=== PATIENT | female | born 1960 | race Caucasian/White ===

== ENCOUNTER 2016-11-11 11:32 | Observation (INO) | payer BC ==
[~2016-11-11] VITALS: Ht 167.6 cm; Wt 92.5 kg
--- NOTE | ~2016-11-11 | HP ---
PATIENT'S NAME: PAULINA ODOM [facility] AGE: 56 Y [address] ROOM: [address] [place], [place] [address] [facility] ADMIT DATE: 11/11/2016 History & Physical DISCHARGE DATE: FAMILY PHYSICIAN: ISELA DOS SANTOS MD ATTENDING PHYSICIAN: ISELA DOS SANTOS DATE OF SERVICE: CHIEF COMPLAINT: Chest pain and left arm pain. HISTORY OF PRESENT ILLNESS: The patient is a 56-year-old white female who presented to the emergency room early in the afternoon of the day of admission. She came in with her because she was having some left arm pain and left chest pain that would not go away. Here, she was evaluated by Dr. Maria M Cornejo, ER physician. In the hospital, her EKG, on my review, shows no acute sign of ischemia and normal sinus rhythm. Her chest x-ray shows normal-sized heart. Her right hemidiaphragm is a little bit elevated, but lungs are clear. Her D- dimer is negative. Her cardiac enzymes are normal. Her CBC and chemistry panel are normal with the exception of her sugar being 443. Her chest pain got better, was 5/10 pre-nitroglycerin sublingual, and almost went away with nitroglycerin. When I see her, her chest pain had gone away on the nitroglycerin drip, but she felt some mild heaviness when I saw her in the emergency room at 1:20 in the afternoon. The patient's father had a heart attack at age 48. The patient is a nonsmoker. She does have hypertension. Lipids have been normal in the past. The patient has mild exogenous obesity. She is a nonsmoker and has had no previous heart attack. My plan at this point is to admit her to the hospital, keep her on nitroglycerin drip, put her on telemetry, check serial cardiac enzymes and EKG, and ask Dr. Alexander, service planner, from [facility] to see her later today. If she is stable, I suspect she gets a stress test tomorrow, and if she should fail that, I suspect a heart catheterization, and I have discussed that with the patient and her today. The patient does have a history of GERD, treated with a PPI. She has had no recent cough or cold. No rash on her chest. No pain in her breasts per se. No cough or cold. No chest trauma. PAST MEDICAL HISTORY: MEDICATIONS: 1. Diovan 320/25 one daily. PATIENT'S NAME: PAULINA ODOM [facility] AGE: 56 Y [address] ROOM: [place] [address] LOCATION: [facility]U ADMIT DATE: 11/11/2016 History & Physical DISCHARGE DATE: FAMILY PHYSICIAN: ISELA DOS SANTOS MD ATTENDING PHYSICIAN: ISELA DOS SANTOS 2. Bystolic 10 mg a day. 3. Prilosec 20 mg a day. 4. Aspirin 325 a day. ALLERGIES: SEE NURSE'S NOTES. PREVIOUS OPERATIONS: See old records. SOCIAL HISTORY: Does not smoke. FAMILY HISTORY: As mentioned, in regard to her father. IMMUNIZATIONS: Up-to-date for age. REVIEW OF SYSTEMS: HEENT: She has had no visual changes. No hearing problems. No sore throat. ENDOCRINE: She has not previously been diagnosed as being diabetic, but her sugar was 443 random. Not hypothyroid. LUNGS: No history of asthma. HEART: As mentioned. GASTROINTESTINAL: As mentioned. No change in bowel habits. No dysphagia. No melena. GENITOURINARY: No dysuria or frequency. EXTREMITIES: No new aches and pains. NEUROLOGIC: Never had a seizure or stroke before. SKIN: No recent rashes. MENTAL STATUS: Anxious about her health, but no other recent depression or anxiety. PHYSICAL EXAMINATION: GENERAL APPEARANCE: A pleasant female. Sitting in the ER on a cart with her present for the interview. She is oriented to person, place, time, and competent. HEENT: She wears glasses. She is a bit proptotic. Her TMs not visualized. Posterior pharynx clear. NECK: Unremarkable. Thyroid not enlarged. I did not listen for a carotid bruit. LUNGS: Clear without wheeze or rub. HEART: No murmur, gallop, or rub. BREASTS: Not done. PATIENT'S NAME: PAULINA ODOM [facility] AGE: 56 Y [address] ROOM: [place] [address] LOCATION: [facility] ADMIT DATE: 11/11/2016 History & Physical DISCHARGE DATE: FAMILY PHYSICIAN: ISELA DOS SANTOS MD ATTENDING PHYSICIAN: ISELA DOS SANTOS ABDOMEN: Soft, without point tenderness or mass. PELVIC: Not done. RECTAL: Not done. EXTREMITIES: No edema. Pulses full throughout. NEUROLOGIC: Grossly intact. Cranial nerves intact. MENTAL STATUS: Anxious about her health, but otherwise normal cognition and mood. ASSESSMENT: 1. Left chest pain with left arm pain, rule out angina versus acute myocardial infarction. 2. Hypertension, essential. 3. Exogenous obesity. 4. New diagnosis of diabetes mellitus, type 2. PLAN: We will start her on Accu-Cheks a.c. and q.h.s., long-acting and short-acting insulin, and get a diabetic teaching nurse consult in the morning. Cardiac consultation as mentioned. ISELA DOS SANTOS MD [place] PATROL LIEUTENANT/modl /[id number] D: [id number] T: [id number] HISTORY & PHYSICAL
--- NOTE | ~2016-11-11 | ESTC ---
Cardiac Perfusion Imaging Demographics Patient Name ILENE Garcias Gender Female Patient Number [id number] Race Visit Number [id number] Ethnicity Corporate ID Room Number G6314 Accession Number [id number] Height 66 inches Date of 1960 Weight 209 pounds Benjamin Mendes MD Interpreting Chary Grant Date of study 11/12/2016 Physician Supervising MD/MLP Benjamin FARRELL Technologist A Ordering Physician Benjamin Drake A dialysis equipment technician Stress ECG Reading Benjamin Barrios Nurse Alley Melgar RN Physician A The procedure was explained in detail to the patient. Risks, complications and alternative treatments were reviewed. Written consent was obtained. Medications Reviewed with Patient prior to Procedure. Procedure Admit Source:Emergency department. Procedure Type: Nuclear Stress Test:Exercise, Cardiolite Stress Test Procedure Start time: 11/12/2016 09:05 Indications: Chest pain. Risk Factors The patient risk factors include:former tobacco use, treated hypertension and diabetes mellitus. Conclusions Summary Perfusion Images: The overall quality of the study is good. Left ventricular cavity is noted to be normal on the stress and rest studies. There is no evidence of abnormal lung activity. The right ventricle is not visualized and cannot be assessed. Stress SPECT images and Rest SPECT images demonstrate homogenous tracer distribution throughout the myocardium except for small size mild decrease uptake in the area involving the apex on stress images which is reversible on rest images consistent with mild ischemia. Gated SPECT imaging reveals normal myocardial thickening and wall motion. The left ventricular ejection fraction was calculated to be 61%. Impression Myocardial perfusion imaging is mildly abnormal. The images reveal a small size mild reversible defect in the apical wall consistent with mild ischemia . Overall left ventricular systolic function was normal. This is a low risk stress test. There are no previous studies for comparison Stress Protocols Resting ECG Normal sinus rhythm. Pre-stress physical exam: Patient assessed by Dr Alexander prior to testing. Stress Protocol:Pharmacologic Predicted HR: 165 bpm ECG Findings No ECG changes suggestive of ischemia. Arrhythmias No rhythm abnormality. Symptoms Shortness of breath. Stress Interpretation Appropriate hemodynamic response to Lexiscan. No significant ST-T wave changes with Lexiscan. ECG portion is negative for ischemia by diagnostic criteria. Treadmill was aborted because of not achieving target heart rate after 9:30 min of exercise. Imaging Results Summed scores - Summed stress score: 11 - Summed rest score: 7 - Summed difference score: 4 Stress ejection Ejection fraction:61 % EDV :110 ml ESV :43 ml Stroke volume :67 ml LV mass :131 gr Imaging Protocols Rest Stress Isotope:Tc99m Sestamibi IV Isotope: Tc99m Sestamibi IV Isotope dose:13.7 mCi Isotope dose:42 mCi Date:11/12/2016 07:34 Date:11/12/2016 11:37 Technique: SPECT Technique: Gated Supine SPECT Supine IV remains in place after procedure. Scan Time:45-60 minutes post Scan Time:45-60 minutes post injection injection Procedure Medications - Regadenoson (Lexiscan) 0.4 mg IV over 10-15 sec. I.V. 0.4 mg. Medical History Admission Data Admission date: 11/11/2016 Admission Time: 13:04 Hospital Status: Inpatient. Signatures dtt: LOKI CRAIG dtd: 11/12/16904 Physician Self Edit
--- NOTE | ~2016-11-11 | ER ---
PATIENT'S NAME: PAULINA ODOM [facility] AGE: 56 Y [address] ROOM: [place] [address] LOCATION: [facility]PCU ADMIT DATE: 11/11/2016 ER/Outpatient Report DISCHARGE DATE: FAMILY PHYSICIAN: ISELA DOS SANTOS MD ATTENDING PHYSICIAN: ISELA DOS SANTOS Time of Arrival: 1132 hours. Time of Evaluation: 1142 hours. IDENTIFICATION: A 56-year-old female. CHIEF COMPLAINT: Chest pain. HISTORY OF PRESENT ILLNESS: The patient is a 56-year-old female from [place], who presents with chest pain starting at 8:00 a.m. this morning. The pain is substernal pain, radiating to the left, associated with diaphoresis, nausea, and shortness of breath. She had a similar episode 1 to 2 weeks ago, had some nausea associated with this and vomiting. She herself has never had any history of coronary artery disease. She does have risk factors to include a positive family history, father had an OK at age 45 and hypertension. She denies diabetes. She denies hyperlipidemia. Right now, her pain is a 5/10, substernal pain. ALLERGIES: NO KNOWN DRUG ALLERGIES. CURRENT MEDICATIONS: 1. Bystolic 5 mg daily. 2. Losartan 320/12.5 mg b.i.d. 3. Omeprazole 20 mg daily. 4. Sertraline 100 mg daily. MEDICAL PROBLEMS: Hypertension, depression, gastroesophageal reflux disease. PRIOR SURGERIES: x2. FAMILY HISTORY: Mother with Sjogren's disease. Sister with lupus. Father with an OK at age 48. REVIEW OF SYSTEMS: PATIENT'S NAME: PAULINA ODOM [facility] AGE: 56 Y [address] ROOM: [place] [address] LOCATION: [facility]PCU ADMIT DATE: 11/11/2016 ER/Outpatient Report DISCHARGE DATE: FAMILY PHYSICIAN: ISELA DOS SANTOS MD ATTENDING PHYSICIAN: ISELA DOS SANTOS All systems reviewed and negative other than what is noted in the HPI. SOCIAL HISTORY: The patient is . Lives in [place] with her . She is a teacher. Tobacco use, denies. Alcohol use, denies. Drug use, denies. PHYSICAL EXAMINATION: VITAL SIGNS: Weight 95.3 kg, blood pressure 194/87, pulse 73, respirations 20, temperature 97.4, sats 93% on room air. GENERAL: A 56-year-old female, in no acute distress. HEENT: Head: Normocephalic, atraumatic. Ears: TMs translucent both ears. Nose: Mucosa pink, no lesions. Mouth: No lesions. Pharynx benign. NECK: Supple. No lymphadenopathy. LUNGS: Clear to auscultation. HEART: Regular rate and rhythm. No murmur, rub, or gallop. ABDOMEN: Bowel sounds present. Soft, nondistended. No hepatosplenomegaly. No palpable masses. Nontender. SKIN: [place], warm, and dry. No lesions or rashes noted. NEURO: The patient is alert and oriented x4. Cranial nerves 2 through 12 grossly intact. Motor strength 5/5 throughout. Sensation is intact to light touch. No lower extremity edema. No calf tenderness. EMERGENCY DEPARTMENT COURSE: The patient was given 4 baby aspirin and 1 sublingual nitroglycerin tablet, and her pain did improve with sublingual nitro. She was then started on a nitro drip per acute coronary syndrome protocol. LABORATORY DATA AND X-RAYS: Sodium 137, potassium 4.2, chloride 102, CO2 of 22, BUN 20, creatinine 0.9, blood sugar 443. Liver enzymes elevated, alkaline phosphatase 139, AST 66, ALT 122, GFR greater than 60. CPK 44, magnesium 2.0. CK-MB less than 0.5. Troponin I less than 0.040. D-dimer 0.51. Hemoglobin 13.9, hematocrit 40.4, platelets 190, white count 5.8 with a normal differential. INR 0.95. EKG normal sinus rhythm at 65 beats per minute. No acute ST elevation or depression. She has nonspecific ST-T wave changes. One-view chest x-ray, no acute process. Pending Radiology over-read. Hemoglobin A1c 10.5. IMPRESSION AND PLAN: 1. Chest pain relieved with Nitro, nitroglycerin drip per protocol. The patient with risk factors to include obesity, positive family history, hypertension, and new onset diabetes. Dr. Dos Santos will admit the patient to PCU telemetry for serial EKG and enzymes and Cardiology consultation. 2. Hypertension. Blood pressure improved on a nitro drip to 135/81, and the patient's pain resolved. 3. Obesity. PATIENT'S NAME: PAULINA ODOM [facility] AGE: 56 Y [address] ROOM: [address] [place] [id number] LOCATION: [facility] ADMIT DATE: 11/11/2016 ER/Outpatient Report DISCHARGE DATE: FAMILY PHYSICIAN: ISELA DOS SANTOS MD ATTENDING PHYSICIAN: ISELA DOS SANTOS 4. New-onset diabetes mellitus. TSH was at 1.450. ProBNP 103. Again, the patient was admitted to U telemetry in improved condition. MD MARCELLUS SANTAMARIA/beny /[id number] d: 11/11/16 2150 t: 11/16/16 0756, OUTPATIENT REPORT
--- NOTE | ~2016-11-11 | CON ---
PATIENT'S NAME: PAULINA ODOM [facility] AGE: 56 Y [address] ROOM: [facility] [place], [place] [address] [facility] ADMIT DATE: 11/11/2016 Consultation DISCHARGE DATE: FAMILY PHYSICIAN: ISELA DUQUE MD ATTENDING PHYSICIAN: ISELA DUQUE DATE OF CONSULTATION: 11/11/2016 REFERRING PHYSICIAN: Pedro Bearden MD HISTORY OF PRESENT ILLNESS: This is a 56-year-old woman who is admitted by Dr. Duque for chest pain. The patient says that while in pentecostal today, she had substernal squeezing sensation as well as a sharp pain, difficulty breathing, and feeling unwell that lasted 5 to 10 minutes. She went home and then came to the emergency room. She was evaluated and admitted. She was started on intravenous nitroglycerin. She did have a brief recurrence of the discomfort while on nitroglycerin. Initial evaluation showed no acute EKG changes and negative enzymes. She remembers that a week ago, she had a similar episode at rest, not as severe. No recurrence in between. She is not very physically active. They have some stairs at home that she goes up slowly and has done so for the recent past. She has not experienced any orthopnea. REVIEW OF SYSTEMS: Reporting findings include recent weight gain. She has sleep apnea and uses CPAP every night. She has had long-standing hypertension that recently had worsened and saw Dr. Duque, and he added Bystolic to her valsartan. She does not think that she had more frequent urination, but her daughter thinks she does. She denies nocturia. No burning during urination. Remaining symptoms were negative. SOCIAL HISTORY: She is . 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 Never smoked. She is at most an alcoholic drink a day. No illegal drug use. FAMILY HISTORY: Her father needed coronary artery bypass surgery at the age 48; he lived to be 79. Her mother is alive and well, but has autoimmune disorder. A sister has lupus. PAST SURGICAL HISTORY: Only 2 C-sections. MEDICATIONS: 1. Omeprazole 20 mg daily. 2. Nebivolol 5 mg daily. PATIENT'S NAME: PAULINA ODOM [facility] AGE: 56 Y [address] ROOM: [address] [address] LOCATION: GPCU ADMIT DATE: 11/11/2016 Consultation DISCHARGE DATE: FAMILY PHYSICIAN: ISELA DUQUE MD ATTENDING PHYSICIAN: ISELA DUQUE 3. Sertraline 100 mg daily. 4. Valsartan and hydrochlorothiazide 320/25 once a day. 5. Calcium with vitamin D3 once a day. 6. Multivitamin once a day. 7. Loratadine 10 mg daily. 8. Melatonin 20 mg at bedtime. PHYSICAL EXAMINATION: GENERAL: A pleasant, overweight, middle-aged woman. She is alert and oriented. VITAL SIGNS: Recorded, height 5 feet 6 inches, weight is 94.3 kg, blood pressure is 154/74, pulse 60, and temperature 98.8. SKIN: Warm and dry. HEAD: Normocephalic, atraumatic. NECK: Supple. There is no jugular venous distention. No carotid bruits. No thyromegaly. No lymphadenopathy. LUNGS: Clear. HEART: Regular first and second heart sounds. No murmur. No rub. No gallop. ABDOMEN: Obese. No organomegaly detected. LOWER EXTREMITIES: No peripheral edema, 2+ dorsalis pedis pulses. LABORATORY AND DIAGNOSTIC DATA: Her electrocardiogram shows sinus rhythm with nonspecific mild repolarization changes. D-dimer is normal. First set of cardiac enzymes is normal. ProBNP is normal. TSH 1.45. Hemoglobin A1c is 10.5%. Chest x-ray is normal. Complete metabolic screen notable for a glucose of 443. IMPRESSION: 1. Unstable angina. 2. Long-standing hypertension. 3. Recently discovered diabetes, type 2. 4. Obstructive sleep apnea. 5. Obesity. PLAN: Since initial set of cardiac enzymes negative, we will continue monitoring. I will add heparin per ACS protocol. We will trend cardiac enzymes. If they remain negative, we will proceed with a nuclear stress test in the a.m. Otherwise, direct coronary angiography. I will add some high-dose statin. Thank you for allowing me to participate in the care of your patient. PATIENT'S NAME: PAULINA ODOM [facility] AGE: 56 Y [address] ROOM: [address] [address] LOCATION: GPCU ADMIT DATE: 11/11/2016 Consultation DISCHARGE DATE: FAMILY PHYSICIAN: ISELA DUQUE MD ATTENDING PHYSICIAN: ISELA DUQUE PEDRO BEARDEN MD PE/modl /[id number] d: 11/11/16 1827 t: 11/21/16 1037, CONSULTATION REPORT
--- NOTE | ~2016-11-11 | DS ---
PATIENT'S NAME: PAULINA ODOM [facility] AGE: 56 Y [address] ROOM: [address] [place] [address] LOCATION: GPCU ADMIT DATE: 11/11/2016 Discharge Summary DISCHARGE DATE: 11/13/2016 FAMILY PHYSICIAN: Isela Dos Santos MD ATTENDING PHYSICIAN: Isela Dos Santos FINAL DIAGNOSES: 1. Chest pain, noncardiac. 2. Diabetes mellitus type 2, new diagnosis, insulin-requiring with hyperglycemia. 3. Hypertension, essential. 4. Chronic gastroesophageal reflux disease. 5. Depression, major, complete remission. 6. Obesity, exogenous. HOSPITAL COURSE: The patient was admitted through the ER with some chest pain and palpitations and blood sugar over 440. She was put in bed and a cardiac consultation was obtained. She had no evolutionary changes by blood tests or EKG of acute myocardial infarction. She flunked her noninvasive stress test and was taken to the lab coordinator on the day of dismissal per Dr. Alexander from [facility]. She was found to have nonobstructive coronary artery disease. She received diabetic teaching here and regard diet, blood sugar monitoring, and insulin use. She is dismissed and home today, 11/13/2016. She goes out on a diabetic diet, the med list shown including both short and long-acting insulin. She should see me back in the office in 3 or 4 days. Eventually, as her blood sugars come down as I suspect, we will switch her to oral agents and at her next visit we will add metformin. She understands that if she has chest pain, shortness of breath, high or low blood sugars, she is to be seen earlier. ISELA DOS SANTOS MD ASSISTANT TERMINAL MANAGER/modl /[id number] d: 11/14/16 0125 t: 11/14/16 0715, DISCHARGE SUMMARY
--- NOTE | ~2016-11-11 | CATH ---
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 Diagnostic Recommendations Medical treatment. Procedure Description The patient was brought to the diagnostic cardiac catheterization-EP laboratory in the fasting, non-sedated state. Informed consent was obtained in the written and verbal form after the risks and benefits were explained. The patient had no further questions and agreed to proceed. The planned puncture-incision site(s) were shaved and prepped with ChloraPrep and draped in the usual sterile manner. Conscious sedation, supplemental oxygen, and pain control medications were delivered by a registered nurse under physician guidance. Surface ECG rhythm, blood pressure measurement, and pulse oximetry were monitored throughout the procedure. Arterial access. The access site was infiltrated with lidocaine. The vessel was entered with the Seldinger technique. A sheath was advanced into the vessel and used for catheter placement. Selective left coronary angiography. A catheter was advanced into the left coronary vessel ostium under Fluoroscopic guidance. Contrast was injected by hand. Images were obtained in multiple projections. Selective right coronary angiography. A catheter was advanced into the right coronary vessel ostium under fluoroscopic guidance. Contrast was injected by hand. Images were obtained in multiple projections. Arterial artery hemostasis was achieved. The patient was transferred to a regular nursing floor via cart accompanied by a nurse. The patient left the laboratory in stable condition. Diagnostic Cath Status: Elective Procedure Procedure Type Diagnostic procedure:Angiography:, Coronary Angios Indications: Abnormal Stress Test. The procedure was explained in detail to the patient. Risks, complications and alternative treatments were reviewed. Written consent was obtained. Medications Reviewed with Patient prior to Procedure. Angiographic Findings Dominance: Right Cardiac Arteries and Lesion Findings LMCA: Normal (0% Stenosis). LAD: Diagonal patent. Lesion on Prox LAD: 25% stenosis . Lesion on Mid LAD: 20% stenosis . LCx: Normal (0% Stenosis). RCA: Lesion on Dist RCA: 20% stenosis . Lesion on R PDA: Proximal subsection.10% stenosis . Lesion on 1st RPL: Ostial.30% stenosis . Coronary Tree Procedure Data Procedure Date Date: 11/13/2016Start: 10:00 AMEnd: 10:14 AM Entry Locations - Retrograde Percutaneous access was performed through the Right Radial artery (Primary location). A 6 Fr sheath was inserted. Hemostasis was successfully obtained using Mechanical Compression. Closure Comments: R band with 14 cc air deployed by BEAU Fernandez.. Procedure Medications Order and Administration + + + +--------+ !Time !Medication !Dosage !Route ! + + + +--------+ !11/13/2016 10:00 AM !Radial Nitroglycerin !200 mcg !I.A. ! + + + +--------+ !11/13/2016 10:00 AM !Radial Verapamil !1.5 mg !I.A. ! + + + +--------+ !11/13/2016 10:00 AM !Radial Heparin (ACC_3) !2500 units !I.A. ! + + + +--------+ !11/13/2016 09:58 AM !Versed !1 mg !I.V. ! + + + +--------+ !11/13/2016 09:59 AM !Fentanyl !50 mcg !I.V. ! + + + +--------+ !11/13/2016 10:01 AM !Versed !1 mg !I.V. ! + + + +--------+ Devices Used - A6 Fr. BS JR 4 Diag. Catheterwas used for:Right coronary angiography. - A6 Fr. BS JL 3.5 Diag. Catheterwas used for:Left coronary angiography. Contrast Material - Isovue 28977 ml Fluoroscopy Time: Diagnostic: 4:30 minutes. Total: 4:30 minutes. Fluoroscopy Dose: Diagnostic: 846 mGy. Total: 846 mGy. Estimated Blood Loss: 10 ml. Medical History Performed Procedures and Imaging Results - Stress testing with SPECT MPIwas performed. Results were: Positive. Risk/Extent of ischemia was: Low risk. Allergies - No known allergies. Risk Factors The patient risk factors include:treated hypertension, family history of premature CAD, Newly diagnoseddiabetes mellitus, last creatinine: 1 mg/dl, creatinine clearance: 95.13 ml/min and former tobacco use. Admission Data Admission Date: 11/11/2016 Admission Time: 01:04 PM Admit Source: Emergency department Insurance Payors: Private health insurance. Admission Medications + +------+-----+---------+---------+ + + !Medication !Dosage!Times!Last !Last !Administered !Comments ! ! ! !Per !Delivery !Delivery ! ! ! ! ! !Day !Date !Time ! ! ! + +------+-----+---------+---------+ + + !Aspirin (any) ! ! ! ! !Yes ! ! + +------+-----+---------+---------+ + + !Statin (any) ! ! ! ! !Yes ! ! + +------+-----+---------+---------+ + + !Beta Inocente ! ! ! ! !Yes ! ! !(any) ! ! ! ! ! ! ! + +------+-----+---------+---------+ + + !Unfractionated ! ! ! ! !Yes ! ! !Heparin (any) ! ! ! ! ! ! ! + +------+-----+---------+---------+ + + Clinical Evaluation Leading to Procedure - The patient's CAD presentation was assessed as: Unstable angina. - The patient's anginal syndrome during the past two weeks was assessed as: Class IV according to the [place] Cardiovascular Society Classification System (CCS). Anti-anginal medications were prescribed during the past two weeks. The medication is: Beta Blockers. Snapshots Hemodynamics Condition: Rest O2 Consumption: Estimated: 192.50Heart Rate: 65 bpm Pressures (mmHg) +-----+ + !Site !Pressure ! +-----+ + !AO !125/79 (99) ! +-----+ + Shunts Oxygen Values O2 Capacity 194.48 O2 Consumption 192.5 Signatures dtt: Pedro lAexander dtd: 11/13/16 [facility] Physician Self Edit
[2016-11-11 12:04] LABS: BASOPHIL % 0.7 %; EOSINOPHIL # 0.2 K/uL (0.0-0.5); EOSINOPHIL % 3.6 %; HEMATOCRIT 40.4 % (33.0-46.0); HEMOGLOBIN 13.9 g/dL (10.0-15.0); IMMATURE GRANULOCYTE % 0.5 %; LYMPHOCYTE # 1.4 K/uL (0.8-4.0); LYMPHOCYTE % 24.3 %; MCH 30.2 pg (27.0-34.0); MCHC 34.4 gm/dL (32.0-36.5); MCV 87.6 fl (83.0-98.0); MONOCYTE # 0.4 K/uL (0.0-1.0); MONOCYTE % 6.4 %; MPV 10.1 fl (9.4-12.4); NEUTROPHIL # (ANC) 3.7 K/uL (1.8-7.8); NEUTROPHIL % 64.5 %; NRBC % 0 /100WBC (0-0.00); PLATELET COUNT 190 K/uL (150-450); RBC 4.61 M/uL (3.50-5.50); RDW-CV 11.9 % (11.9-14.6); WBC 5.8 K/uL (4.0-11.0)
[2016-11-11 12:20] LABS: INR - (THERAPEUTIC) 0.95 (0.92-1.07); PTT 24 SECONDS (25-32)
[2016-11-11 12:28] LABS: ALBUMIN 3.7 gm/dL (3.5-5.0); ALK PHOS 139 IU/L (33-138); ALT 122 IU/L (12-78); ANION GAP 17.2 (10.0-19.0); AST 66 IU/L (10-40); BLOOD UREA NITROGEN 20 mg/dL (6-24); CALCIUM 8.9 mg/dL (8.5-10.5); CHLORIDE 102 mMol/L (96-110); CO2 22 mMol/L (22-32); CPK 44 IU/L (21-215); CREATININE 0.9 mg/dL (0.5-1.1); ESTIMATED GFR (MDRD EQUATION) > 60; POTASSIUM 4.2 mMol/L (3.7-5.1); SODIUM 137 mMol/L (135-145); TOTAL BILIRUBIN 0.6 mg/dL (0.0-1.5); TOTAL PROTEIN 7.2 g/dL (6.0-8.4)
[2016-11-11] MEDS ORDERED: ZOLOFT100 MG PO (14:34)
[2016-11-11] MEDS ORDERED: BYSTOLIC5 MG PO (14:34)
[2016-11-11] MEDS ORDERED: PRILOSEC20 MG PO (14:34)
[2016-11-11] MEDS ORDERED: VALSARTAN-HCTZ1 EAC2 PO (14:35)
[2016-11-11] MEDS ORDERED: THERAGRAN-M1 TAB PO (14:35)
[2016-11-11] MEDS ORDERED: CALCIUM + VITA1 EACH PO (14:35)
[2016-11-11] MEDS ORDERED: MELATONIN10 M2 PO (14:36)
[2016-11-11] MEDS ORDERED: CLARITIN10 MG PO (14:36)
[2016-11-11 15:31] LABS: CPK 38 IU/L (21-215)
[2016-11-11 19:52] LABS: CPK 37 IU/L (21-215)
[2016-11-12 01:28] LABS: CPK 32 IU/L (21-215)
[2016-11-12 07:42] LABS: CPK 35 IU/L (21-215)
[2016-11-13 04:07] LABS: BASOPHIL # 0.1 K/uL (0.0-0.2); BASOPHIL % 0.6 %; EOSINOPHIL # 0.3 K/uL (0.0-0.5); EOSINOPHIL % 3.3 %; HEMATOCRIT 42.2 % (33.0-46.0); HEMOGLOBIN 14.3 g/dL (10.0-15.0); IMMATURE GRANULOCYTE % 0.5 %; LYMPHOCYTE # 2.2 K/uL (0.8-4.0); LYMPHOCYTE % 27.1 %; MCH 30.5 pg (27.0-34.0); MCHC 33.9 gm/dL (32.0-36.5); MONOCYTE # 0.6 K/uL (0.0-1.0); MONOCYTE % 7.3 %; NEUTROPHIL # (ANC) 4.9 K/uL (1.8-7.8); NEUTROPHIL % 61.2 %; NRBC % 0 /100WBC (0-0.00); PLATELET COUNT 217 K/uL (150-450); RBC 4.69 M/uL (3.50-5.50); RDW-CV 12.1 % (11.9-14.6); WBC 7.9 K/uL (4.0-11.0)
[2016-11-13 04:29] LABS: INR - (THERAPEUTIC) 1.01 (0.92-1.07); PROTIME 10.6 SECONDS (9.8-11.4)
[2016-11-13 04:31] LABS: ALBUMIN 3.8 gm/dL (3.5-5.0); CALCIUM 9.1 mg/dL (8.5-10.5); TOTAL PROTEIN 7.1 g/dL (6.0-8.4)
[2016-11-13 04:32] LABS: TOTAL BILIRUBIN 0.8 mg/dL (0.0-1.5)
[2016-11-13] MEDS ORDERED: ASPIRIN (CHILDR81 MG PO (18:56)
[2016-11-13] MEDS ORDERED: LIPITOR40 MG PO (18:57)
[2016-11-13] MEDS ORDERED: NOVOLOG100 UNIT/M SUB-Q (18:58)
[2016-11-13] MEDS ORDERED: LEVEMIR FL100 UNIT/1 SUB-Q (18:59)
== END 2016-11-13 20:30 | disposition disaster alternative care site (69) ==
LOC: GMED 11:32 → GPCU 13:04
PROVIDERS: Family Medicine; Internal Medicine Cardiovascular Disease; ADMIT Family Medicine
DX: R07.89 Other chest pain (principal); E11.65 Type 2 diabetes mellitus with hyperglycemia; I10 Essential (primary) hypertension; F32.9 Major depressive disorder, single episode, unspecified; I20.0 Unstable angina; G47.33 Obstructive sleep apnea (adult) (pediatric); K21.9 Gastro-esophageal reflux disease without esophagitis; E66.09 Other obesity due to excess calories; Z98.890 Other specified postprocedural states; Z79.82 Long term (current) use of aspirin; Z79.899 Other long term (current) drug therapy
CPT/HCPCS: A9500; C1894; G0378; J0280; J1644; J1940; J2250; J2785; J3010; J7030

== ENCOUNTER → 2016-11-23 | Outpatient (CLI) | payer BC ==
[~2016-11-23] MED LIST: ASPIRIN (CHILDR81 MG PO; BYSTOLIC5 MG PO; CALCIUM + VITA1 EACH PO; CLARITIN10 MG PO; LEVEMIR FL100 UNIT/1 SUB-Q; LIPITOR40 MG PO; MELATONIN10 M2 PO; NOVOLOG100 UNIT/M SUB-Q; PRILOSEC20 MG PO; THERAGRAN-M1 TAB PO; VALSARTAN-HCTZ1 EAC2 PO; ZOLOFT100 MG PO
== END | disposition disaster alternative care site (69) ==
LOC: GDIC 13:55
DX: E11.65 Type 2 diabetes mellitus with hyperglycemia (principal)
CPT/HCPCS: G0108

== ENCOUNTER → 2016-12-28 | Outpatient (CLI) | payer BC | END | disposition disaster alternative care site (69) | LOC: GDIC 11-26 08:45 | DX: E11.65 Type 2 diabetes mellitus with hyperglycemia (principal) | CPT/HCPCS: G0108 ==